=== PATIENT | male | born 1985 | race Caucasian/White ===

== ENCOUNTER 2022-04-18 21:59 | Emergency (ER) | payer OTHER, SELFPAY ==
[2022-04-18 22:11] VITALS: BP 140/84; PULSE 68; RESP 18; TEMP 36.4; O2SAT 99; BMI 25.7
--- NOTE | 2022-04-18 22:21 | ED.GENADULT ---
HPI - General Adult General Chief complaint: Extremity Pain/Injury, Lower Stated complaint: Left foot injury Time Seen by Provider: 04/18/22 22:10 History of Present Illness HPI narrative: Pt is a 36 year old gentleman who stepped on a nail tonight which went through the sole of his work boots and in to the plantar aspect of his left foot. The punture site was small with no significant bleeding. No concern for residual foreign body left in the wound. Pt has no bony pain and otherwise feels well. No fever or chills. No discomfort. Tetanus shot is out of date. Pt is otherwise healthy with an intact immune system. Puncture site is on the plantar surface posterior to MTP heads. Related Data Home Medications Medication Instructions Recorded Confirmed No Known Home Medications 04/18/22 04/18/22 Allergies Allergy/AdvReac Type Severity Reaction Status Date / Time No Known Drug Allergies Allergy Verified 04/18/22 22:13 Review of Systems Status of ROS: Reports: 10 or more systems reviewed and unremarkable except as noted in History and below [facility] Medical History (Updated 04/18/22 @ 22:29 by Adrien Jones MD) ADHD Surgical History (Updated 04/18/22 @ 22:29 by Asim Carvalho RN) No significant past surgical history Exam Narrative: Exam Narrative: EXAM GENERAL: Patient appears comfortable and well. EYES: No scleral icterus. THYROID: no thyroid nodules or thyromegaly. LYMPH: No supraclavicular or cervical lymphadenopathy. SKIN: Small puncture site on the plantar aspect of the left foot as described above. EXT: No dependent lower extremity pedal edema. HEART: Regular rate and rhythm with no murmurs, rubs, or gallops. LUNGS: Clear to auscultation bilaterally with no crackles or wheezes. ABD: Soft, non tender, non distended. PSYCH: Good eye contact, speech is not pressured. Const: Vital Signs, click to edit/add: Vital Signs - 24 hr 04/18/22 22:11 Temperature 97.6 F Pulse Rate [Right Pulse Oximeter] 68 Respiratory Rate 18 Blood Pressure [Le ft Upper Arm] 140/84 H Pulse Oximetry 99 Oxygen Delivery Me thod Room Air Course Course Hospital Course: Pt seen and examined. Wound cleaned and redressed. Tdap up dated. Vital Signs Vital signs: Initial Vital Signs Temperature 97.6 F 04/18/22 22:11 Temperature Source Temporal Artery Scan 04/18/22 22:11 Pulse Rate 68 04/18/22 22:11 Respiratory Rate 18 04/18/22 22:11 Blood Pressure 140/84 H 04/18/22 22:11 Blood Pressure Mean 102 04/18/22 22:11 Blood Pressure Position Sitting 04/18/22 22:11 Pulse Oximetry 99 04/18/22 22:11 Oxygen Delivery Method 04/18/22 22:11 Vital Signs Temperature 97.6 F 04/18/22 22:11 Pulse Rate 68 04/18/22 22:11 Respiratory Rate 18 04/18/22 22:11 Blood Pressure 140/84 H 04/18/22 22:11 Pulse Oximetry 99 04/18/22 22:11 Oxygen Delivery Method 04/18/22 22:11 Temperature 97.6 F 04/18/22 22:11 Pulse Rate 68 04/18/22 22:11 Respiratory Rate 18 04/18/22 22:11 Blood Pressure 140/84 H 04/18/22 22:11 Pulse Oximetry 99 04/18/22 22:11 Oxygen Delivery Method 04/18/22 22:11 Medical Decision Making MDM Narrative Medical decision making narrative: Pt is a healthy gentleman who stepped on a nail. No immediated injuries besides the puncture site. The wound was cleaned and redressed. He was instructed on wound care. Tdap was updated. I did review up to date and there is no indication for antibiotics in healthy individuals like Mr. Jean. He will monitor the progress of the puncture site and follow up with his doctor as needed. The wound was agresively palpated. No signs of retained foreign material. Differential Diagnosis Differential Diagnosis: Puncture, Cellulitis, Bony Injury, Foreign body Discharge Plan Discharge Clinical Impression: Puncture wound of foot Patient Disposition: Home, Self-Care Condition: Stable Instructions: Puncture Wound in the Foot (ED) Activity Level: No Restrictions Discharge Diet: Regular Prescriptions: No Action No Known Home Medications Stand Alone Forms: SharedReviewsth Info Instructions
[2022-04-18] MEDS: TETANUS/DIPHTH/PERTUSSIS 0.5 ML SYRINGE IM (22:33)
== END 2022-04-18 22:39 | disposition home or self-care (01) ==
LOC: ED 22:31
PROVIDERS: Emergency Provider Internal Medicine
DX: S91.332A Puncture wound without foreign body, left foot, initial encounter (principal); W45.0XXA Nail entering through skin, initial encounter
CPT/HCPCS: 90471; 90715; 99282; 99283

== ENCOUNTER 2022-05-15 20:06 | Emergency (ER) | payer SELFPAY ==
[2022-05-15 20:12] VITALS: BP 143/98; PULSE 73; RESP 16; TEMP 36.9; O2SAT 98; BMI 26.3
--- NOTE | 2022-05-15 20:25 | ED.DENTAL ---
HPI - Dental/Oral General Chief complaint: Dental/Oral/Mouth Injury/Pain Stated complaint: Left side jaw pain Time Seen by Provider: 05/15/22 20:19 History of Present Illness HPI Narrative: Pt is a36 year old gentleman who had the filling come off of a posterior lower molar earlier today. He has severe pain and can not get in to see a dentist. Mild swelling noted. Pain is confined to the left posterior jaw. No fever or chills. Tylenol and Motrin not helping with the pain. Pain started approximately 6 hours ago. No similar symptoms. Related Data Home Medications Medication Instructions Recorded Confirmed No Known Home Medications 04/18/22 05/15/22 Allergies Allergy/AdvReac Type Severity Reaction Status Date / Time No Known Drug Allergies Allergy Verified 05/15/22 20:15 Review of Systems Status of ROS: Reports: 10 or more systems reviewed and unremarkable except as noted in History and below [facility] Medical History (Updated 05/15/22 @ 20:31 by Adrien Jones MD) ADHD Surgical History (Updated 04/18/22 @ 22:29 by Asim Carvalho RN) No significant past surgical history Social History Smoking Status: Former smoker How often do you have a drink containing alcohol: monthly or less How often do you have six or more drinks on one occasion: Never AUDIT-C Alcohol total score: 1 Non-prescribed substance use: denies use Exam Narrative: Exam Narrative: EXAM GENERAL: Patient appears comfortable and well. EYES: No scleral icterus. ENT: Tympanic membranes and oropharynx normal. THYROID: no thyroid nodules or thyromegaly. LYMPH: No supraclavicular or cervical lymphadenopathy. SKIN: Visible skin seen during exam normal or with benign process only. EXT: No dependent lower extremity pedal edema. HEART: Regular rate and rhythm with no murmurs, rubs, or gallops. LUNGS: Clear to auscultation bilaterally with no crackles or wheezes. ABD: Soft, non tender, non distended. PSYCH: Good eye contact, speech is not pressured. Dental exam shows a jagged tooth in the posterior left with what appears to be a partially missing filling. Const: Vital Signs, click to edit/add: Vital Signs - 24 hr 05/15/22 20:12 Temperature 98.5 F Pulse Rate [Left P ulse Oximeter] 73 Respiratory Rate 16 Blood Pressure [Ri ght Upper Arm] 143/98 H Pulse Oximetry 98 Oxygen Delivery Me thod Room Air Course Course Hospital Course: Pt seen and examined Vital Signs Vital signs: Initial Vital Signs Temperature 98.5 F 05/15/22 20:12 Temperature Source Temporal Artery Scan 05/15/22 20:12 Pulse Rate 73 05/15/22 20:12 Respiratory Rate 16 05/15/22 20:12 Blood Pressure 143/98 H 05/15/22 20:12 Blood Pressure Mean 113 05/15/22 20:12 Blood Pressure Position Sitting 05/15/22 20:12 Pulse Oximetry 98 05/15/22 20:12 Oxygen Delivery Method 05/15/22 20:12 Vital Signs Temperature 98.5 F 05/15/22 20:12 Pulse Rate 73 05/15/22 20:12 Respiratory Rate 16 05/15/22 20:12 Blood Pressure 143/98 H 05/15/22 20:12 Pulse Oximetry 98 05/15/22 20:12 Oxygen Delivery Method 05/15/22 20:12 Temperature 98.5 F 05/15/22 20:12 Pulse Rate 73 05/15/22 20:12 Respiratory Rate 16 05/15/22 20:12 Blood Pressure 143/98 H 05/15/22 20:12 Pulse Oximetry 98 05/15/22 20:12 Oxygen Delivery Method 05/15/22 20:12 MDM - Dental/Oral MDM Narrative Medical decision making narrative: Pt known to me who presents with tooth pain. Has a plan to get to the dentist. Would like pain control and possibly an antibiotic. Up to date on Tdap. No signs of systemic infection. Differential Diagnosis Differential diagnosis: Likely gingival abscess, dental caries, toothache, dental abscess, fracture of tooth and aphthous ulcer Discharge Plan Discharge Clinical Impression: Dental caries Patient Disposition: Home, Self-Care Condition: Stable Additional Instructions: Dental Follow Up Tyelnol #3 as directed Amoxicillin as directed No driving while on Tylenol #3 Activity Level: Activity as Tolerated Discharge Diet: Regular Prescriptions: No Action No Known Home Medications Follow Up/Referrals: Provider,Not a Local [Primary Care Provider] - Stand Alone Forms: [employer] Info Instructions
--- OUTSIDE RECORDS SUMMARY | 2022-05-15 20:42 | XMS_ITS | Clinical Summary ---
:1985 Author Organization [facility] [place] [address] Care Team Providers Name Role Phone Rodo Smalls Primary Care Provider Unavailable Allergies No known active allergies Medications Medication Sig Dispensed Refills Start Date End Date Status dextroamphetamine-amp Take 1 capsule by 30 capsule 0 6 Active hetamine (ADDERALL mouth every XR) 20 mg morning Extended-Release capsuleIndications: Adult ADHD PARoxetine (PAXIL) 40 Take 1 tablet by 30 tablet 3 02/27/2016 Active mg tabletIndications: mouth every Adjustment disorder morning. 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 01/16 Major depressive disorder, recurrent episode, unspecif ied 02/12/2012 Adult ADHD 10/08/2009 Adjustment disorder with depressed mood 09/24/2009 Immunizations Name Administration Dates Next Due Tdap 09/24/2009 Family History Relation Name Status Comments Father Alive Mother Belle Alive Sister Rashida Alive Social History Tobacco Use Types Packs/Day Years Used Date Former Smoker Cigarettes Quit: 12/29/19 12 Smokeless Tobacco: Never Used Tobacco Cessation: Counseling Given: Yes Comments: has second hand smoke exposure Alcohol Use Standard Drinks/Week Comments No 0 (1 standard drink = 0.6 oz pure alcoho l) Sex Assigned at Date Recorded Not on file Obstetrics History Last Filed Vital Signs Vital Sign Reading Time Taken Comments Blood Pressure 126/82 02/27/2016 10:46 AM CDT Pulse 64 02/27/2016 10:46 AM CDT Temperature 36.4 ??C (97.6 ??F) 01/16/2013 11:21 AM CDT Respiratory Rate 14 02/27/2016 10:46 AM CDT Oxygen Saturation 97% 01/16/2013 11:21 AM CDT Inhaled Oxygen Concentration - - Weight 87.3 kg (192 lb 6 oz) 02/27/2016 10:46 AM CDT Height 186.5 cm (6' 1.43) 02/27/2016 10:46 AM CDT Body Mass Index 25.09 02/27/2016 10:46 AM CDT Plan of Treatment Health Maintenance Due Date Last Done Comments COVID-19 vaccine series (#1) 06/06/1987 Hepatitis C screening for age 18-79 2004 BMI (ht and wt on same day) for age 18+ 02/26/2017 02/27/20 Depression screening for age 12+ 09/25/2017 09/25/2016, Tetanus booster 09/24/2019 09/24/2009 Lipids for age 35-44 2021 Influenza for age 9-49 04/09/2022 Tdap Completed 09/24/2009 Results Not on filefrom Last 3 Months Insurance Payer Benefit Plan / Subscriber ID Effective Dates Phone Addre ss Type Group [place] Effective for all [address] [address] [place] [address] Care Teams Genetics Physician Relationship Specialty Start Date End Date Rodo Smalls DO PCP - General Family Practice 02/26/16
== END 2022-05-15 20:45 | disposition home or self-care (01) ==
LOC: ED 20:41
PROVIDERS: Emergency Provider Internal Medicine
DX: K02.9 Dental caries, unspecified (principal)
CPT/HCPCS: 99283

== ENCOUNTER 2022-05-23 15:29 | Emergency (ER) | payer SELFPAY ==
[2022-05-23 17:08] VITALS: BP 127/91; PULSE 98; RESP 18; TEMP 35.8; O2SAT 100; BMI 26.3
--- OUTSIDE RECORDS SUMMARY | 2022-05-23 18:22 | XMS_ITS | Clinical Summary ---
:1985 Author Organization [facility] [place] [address] Care Team Providers Name Role Phone Rodo [...] [place] Effective for all [address] [address] [place] [address] Care Teams Bilingual Office Assistant Relationship Specialty Start Date End Date Rodo Smalls DO PCP - General Family Practice 02/26/16
== END 2022-05-23 18:20 | disposition left against medical advice (07) ==
LOC: ED 18:20
DX: Z53.21 Procedure and treatment not carried out due to patient leaving prior to being seen by health care provider (principal)
CPT/HCPCS: 99281

== ENCOUNTER 2022-06-21 18:26 | Emergency (ER) | payer OTHER, SELFPAY ==
[2022-06-21 18:59] VITALS: BP 123/77; PULSE 84; RESP 18; TEMP 36.2; O2SAT 98; BMI 24.7
--- NOTE | 2022-06-21 19:21 | ED.GENADULT ---
HPI - General Adult General Time Seen by Provider: 19:22 Date Seen: 06/21/22 Chief complaint: Extremity Pain/Injury, Lower Stated complaint: Knee Injury Time Seen by Provider: 06/21/22 18:42 Source: patient Mode of arrival: ambulatory Limitations: no limitations History of Present Illness HPI narrative: Patient is 36 white male works at [employer], stepped off a Pallet, sprained his right knee. It has not been swollen, it is tender a little bit medial and laterally. No locking catching or giving way. Distal CMS is intact, is able to walk with a slight limp Related Data Home Medications Medication Instructions Recorded Confirmed No Known Home Medications 04/18/22 05/15/22 Allergies Allergy/AdvReac Type Severity Reaction Status Date / Time No Known Drug Allergies Allergy Verified 05/15/22 20:15 Review of Systems Status of ROS: Reports: 6 or more systems reviewed and unremarkable except as noted in History and below PFSH PFS Medical History ADHD Surgical History No significant past surgical history Social History Smoking Status: Former smoker How often do you have a drink containing alcohol: monthly or less How often do you have six or more drinks on one occasion: Never AUDIT-C Alcohol total score: 1 Non-prescribed substance use: denies use Exam Narrative: Exam Narrative: Objective: Patient is alert orient x3 Right knee shows no effusion, negative anterior posterior drawer test distal CMS is intact Mild medial lateral below the joint line tenderness. No swelling, no redness, distal CMS is intact. He is able ambulate Const: Vital Signs, click to edit/add: Vital Signs - 24 hr 06/21/22 18:59 Temperature 97.1 F L Pulse Rate [Right Pulse Oximeter] 84 Respiratory Rate 18 Blood Pressure [Ri ght Upper Arm] 123/77 Pulse Oximetry 98 Oxygen Delivery Me thod Room Air Course Vital Signs Vital signs: Initial Vital Signs Temperature 97.1 F L 06/21/22 18:59 Temperature Source Temporal Artery Scan 06/21/22 18:59 Pulse Rate 84 06/21/22 18:59 Respiratory Rate 18 06/21/22 18:59 Blood Pressure 123/77 06/21/22 18:59 Blood Pressure Mean 92 06/21/22 18:59 Blood Pressure Position Sitting 06/21/22 18:59 Pulse Oximetry 98 06/21/22 18:59 Oxygen Delivery Method 06/21/22 18:59 Vital Signs Temperature 97.1 F L 06/21/22 18:59 Pulse Rate 84 06/21/22 18:59 Respiratory Rate 18 06/21/22 18:59 Blood Pressure 123/77 06/21/22 18:59 Pulse Oximetry 98 06/21/22 18:59 Oxygen Delivery Method 06/21/22 18:59 Temperature 97.1 F L 06/21/22 18:59 Pulse Rate 84 06/21/22 18:59 Respiratory Rate 18 06/21/22 18:59 Blood Pressure 123/77 06/21/22 18:59 Pulse Oximetry 98 06/21/22 18:59 Oxygen Delivery Method 06/21/22 18:59 Medical Decision Making MDM Narrative Medical decision making narrative: Patient's it appears to have sprained his right knee does not appear to have a cartilaginous injury but may have some soft tissue inflammation, I would recommend a knee immobilizer for couple of days follow up with primary care at that time. 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 Further imaging and treatment pending his clinical improvement. Appointment made at Ortho clinic for Wednesday at 1:15PM. Activity Level: Light activity Discharge Diet: Regular Prescriptions: No Action No Known Home Medications Follow Up/Referrals: Provider,Not a Local [Primary Care Provider] - Stand Alone Forms: My[employer] Info Instructions
--- OUTSIDE RECORDS SUMMARY | 2022-06-21 19:25 | XMS_ITS | Clinical Summary ---
:1985 Author Organization [facility] [place] [address] Care Team Providers Name Role Phone Rodo [...] [place] Effective for [place] [address] [address] [place] [address] Care Teams Smelting Engineer Relationship Specialty Start Date End Date Rodo Smalls DO PCP - General Family Practice 02/26/16
== END 2022-06-21 19:39 | disposition home or self-care (01) ==
PROVIDERS: Emergency Provider Family Medicine
DX: S83.91XA Sprain of unspecified site of right knee, initial encounter (principal); X50.1XXA Overexertion from prolonged static or awkward postures, initial encounter
CPT/HCPCS: 99283

== ENCOUNTER 2022-06-30 08:32 | Outpatient (CLI) | payer OTHER, SELFPAY ==
--- OUTSIDE RECORDS SUMMARY | 2022-06-30 09:11 | XMS_ITS | Clinical Summary ---
:1985 Author Organization [facility] [place] [address] Care Team Providers Name Role Phone Rodo [...] Done Comments COVID-19 vaccine series (#1) 06/06/1987 HIV for age 15-65 2001 Hepatitis C screening for age 18-79 2004 [...] [place] Effective for all [address] [address] [place] [address] Care Teams Oxidized Finish Plater Relationship Specialty Start Date End Date Rodo Smalls DO PCP - General Family Practice 02/26/16
--- NOTE | 2022-06-30 09:15 | MR_ITS ---
[address] [address] Phone:?[phone] Fax:?[phone] Referring Physician Information: Modesto Andrade M.D. [address] [place] [id number] Phone:?[phone] Fax:?[phone] Patient:?Hayden Jean D.O.B:?1985 Sex:?Male Phone:?[phone] [facility] MRN:?[id number] Exam Date:?06/30/2022 ? EXAM: MRI EXAMINATION OF THE RIGHT KNEE CLINICAL INFORMATION: Right knee pain. No specific injury. Concern for medial meniscal tear. TECHNICAL INFORMATION: Coronal PD and STIR. Axial PD and T2 fat saturation. Sagittal PD and PD fat saturation images were acquired. INTERPRETATION: Bones: No appreciable subchondral edema signal or cystic change. No evidence for an occult fracture, osseous contusion or stress reaction. No other abnormal bone marrow edema pattern is identified. Ligaments and tendons: The medial collateral ligament is intact, without acute sprain or tear. The iliotibial band, fibular collateral ligament, biceps femoris tendon and popliteus tendon all are intact. The anterior cruciate ligament is intact without acute sprain or tear. The posterior cruciate ligament is intact. Extensor Mechanism: The patellar and quadriceps tendons are intact. The medial and lateral retinacula are intact. Knee Joint: There is no knee joint effusion. No evidence for a discrete popliteal cyst. No abnormal soft tissue fluid/edema signal to indicate MRI appearance for bursitis about the knee. No evidence for a loose body within the joint. There is a thickened and mildly edematous appearance of the fat pad off the superior pole patella and deep to the distal quadriceps tendon. Medial Compartment: There is no evidence for discrete medial meniscal tear. No displaced flap fragment or parameniscal cyst. There is no focal chondral defect. No other significant changes of chondromalacia. Lateral Compartment: There is no evidence for discrete lateral meniscal tear. No displaced flap fragment or parameniscal cyst. There is no focal chondral defect. No other significant changes of chondromalacia. Patellofemoral articulation: Series 4 image 13 demonstrates a grade 1-2 appearance of chondromalacia involving the central midline patella and medial facet. No other significant chondromalacia. CONCLUSION: 1. 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 No chondral defect involving the knee. 2. There is no evidence for a meniscal tear. 3. The cruciate ligaments are intact. No other residua of a ligament injury involving the knee. 4. Thickened and mildly edematous appearance of the fat pad off the superior pole patella and deep to the distal quadriceps tendon. Appearance would be in keeping with suprapatellar fat pad impingement. 5. No evidence for a knee joint effusion. KES Electronically signed on 06/30/2022 1:40:00 PM by Jesus Manuel Wilder M.D.
== END 2022-06-30 08:33 | disposition home or self-care (01) ==
PROVIDERS: Visit Provider Orthopaedic Surgery
DX: M25.561 Pain in right knee (principal); M22.41 Chondromalacia patellae, right knee
CPT/HCPCS: 73721

== ENCOUNTER 2022-07-13 12:44 | Outpatient (RCR) | payer OTHER, SELFPAY | END 2022-12-08 16:16 | disposition home or self-care (01) | PROVIDERS: Visit Provider Orthopaedic Surgery | DX: Z02.6 Encounter for examination for insurance purposes (principal); M17.11 Unilateral primary osteoarthritis, right knee; M25.861 Other specified joint disorders, right knee; M25.561 Pain in right knee; Z51.89 Encounter for other specified aftercare | CPT/HCPCS: 97162 ==